=== PATIENT | female | born 1975 | race Two or more races ===

== ENCOUNTER → 2023-11-08 13:15 | Outpatient (BNVA) | payer OTHER, SELFPAY | PROVIDERS: Visit Provider Registered Nurse | DX: S30.0XXA Contusion of lower back and pelvis, initial encounter (principal); W22.8XXA Striking against or struck by other objects, initial encounter | CPT/HCPCS: 72100; 99203 ==

== ENCOUNTER → 2023-11-10 12:26 | Outpatient (BNVA) | payer OTHER, SELFPAY | PROVIDERS: Visit Provider Registered Nurse | DX: S30.0XXA Contusion of lower back and pelvis, initial encounter (principal); W22.8XXA Striking against or struck by other objects, initial encounter; M54.31 Sciatica, right side | CPT/HCPCS: 99213 ==

== ENCOUNTER → 2023-11-17 15:26 | Outpatient (BNVA) | payer OTHER, SELFPAY | PROVIDERS: Visit Provider Registered Nurse | DX: S30.0XXA Contusion of lower back and pelvis, initial encounter (principal); W22.8XXA Striking against or struck by other objects, initial encounter | CPT/HCPCS: 99213 ==

== ENCOUNTER → 2023-11-24 15:14 | Outpatient (BNVA) | payer OTHER, SELFPAY | PROVIDERS: Visit Provider Registered Nurse | DX: S30.0XXA Contusion of lower back and pelvis, initial encounter (principal); W22.8XXA Striking against or struck by other objects, initial encounter; M54.41 Lumbago with sciatica, right side | CPT/HCPCS: 99213 ==

== ENCOUNTER → 2023-12-14 13:58 | Outpatient (BNVA) | payer OTHER, SELFPAY | PROVIDERS: Visit Provider Registered Nurse | DX: S30.0XXD Contusion of lower back and pelvis, subsequent encounter (principal); W22.8XXD Striking against or struck by other objects, subsequent encounter; M54.31 Sciatica, right side | CPT/HCPCS: 99213 ==

== ENCOUNTER → 2023-12-28 11:15 | Outpatient (BNVA) | payer OTHER, SELFPAY | PROVIDERS: Visit Provider Registered Nurse | DX: S30.0XXD Contusion of lower back and pelvis, subsequent encounter (principal); W22.8XXD Striking against or struck by other objects, subsequent encounter; M54.31 Sciatica, right side | CPT/HCPCS: 99213 ==

== ENCOUNTER → 2024-01-20 11:05 | Outpatient (BNVA) | payer OTHER, SELFPAY | PROVIDERS: Visit Provider Registered Nurse | DX: S30.0XXD Contusion of lower back and pelvis, subsequent encounter (principal); W22.8XXD Striking against or struck by other objects, subsequent encounter; M54.41 Lumbago with sciatica, right side | CPT/HCPCS: 99213 ==

== ENCOUNTER → 2024-02-10 14:32 | Outpatient (BNVA) | payer OTHER, SELFPAY | PROVIDERS: Visit Provider Registered Nurse | DX: S30.0XXD Contusion of lower back and pelvis, subsequent encounter (principal); W22.8XXD Striking against or struck by other objects, subsequent encounter | CPT/HCPCS: 99213 ==

== ENCOUNTER → 2024-03-02 15:34 | Outpatient (BNVA) | payer OTHER, SELFPAY | PROVIDERS: Visit Provider Registered Nurse | DX: S30.0XXD Contusion of lower back and pelvis, subsequent encounter (principal); W22.8XXD Striking against or struck by other objects, subsequent encounter; M54.31 Sciatica, right side | CPT/HCPCS: 99213 ==

== ENCOUNTER → 2024-03-23 15:19 | Outpatient (BNVA) | payer OTHER, SELFPAY | PROVIDERS: Visit Provider Registered Nurse | DX: S30.0XXD Contusion of lower back and pelvis, subsequent encounter (principal); W22.8XXD Striking against or struck by other objects, subsequent encounter | CPT/HCPCS: 99213 ==

== ENCOUNTER → 2024-04-13 09:28 | Outpatient (BNVA) | payer OTHER, SELFPAY | PROVIDERS: Visit Provider Registered Nurse | DX: S30.0XXD Contusion of lower back and pelvis, subsequent encounter (principal); W22.8XXD Striking against or struck by other objects, subsequent encounter | CPT/HCPCS: 99213 ==